=== PATIENT | female | born 1985 | race Caucasian/White ===

== ENCOUNTER 2018-10-21 13:57 | Emergency (ER) | payer OTHER ==
[2018-10-21] MEDS: Sodium Chloride 0.9% 10 ML Syringe FLUSH PRN ×2 (15:01→16:52)
--- NOTE | 2018-10-21 15:51 | EDM.PDOC ---
ED HPI GENERAL MEDICAL PROBLEM - General Chief Complaint: Chest Pain Stated Complaint: CHEST PAIN Time Seen by Provider: 10/21/18 14:30 Source of Information: Reports: Patient History Limitations: Reports: No Limitations - History of Present Illness INITIAL COMMENTS - FREE TEXT/NARRATIVE: 33-year-old female presents for evaluation and treatment of chest pain. Patient reports that she has had chest pain on and off for the last 3 days. States she began concerned today when it has been constant. She describes as pleuritic in nature. She reports a little bit of a cough. She also reports diaphoresis, lightheadedness, nausea, vomiting, chills and a decreased appetite. She reports some back pain. She denies any syncope or fevers. Has tried ibuprofen but the pain seems to persist. She reports that she has been around ill contacts with a cough. She denies any long car rides or airplane rides. No leg pain or swelling. she is healthy and is not on any medications. No contraceptives. Duration: Day(s): (3) Chest Pain Score (Numeric/FACES): 2 - Related Data Allergies Allergy/AdvReac Type Severity Reaction Status Date / Time No Known Allergies Allergy Verified 10/21/18 14:17 Home Meds: Home Meds Omeprazole 20 mg PO DAILY #30 tablet. 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: Neurological History: Reports: None Psychiatric History: Reports: None Endocrine/Metabolic History: Reports: Obesity/BMI 30+ Hematologic History: Reports: None Immunologic History: Reports: None Oncologic (Cancer) History: Reports: None Dermatologic History: Reports: None - Infectious Disease History Infectious Disease History: Reports: None - Past Surgical History Head Surgeries/Procedures: Reports: None HEENT Surgical History: Reports: Oral Surgery Respiratory Surgical History: Reports: None Musculoskeletal Surgical History: Reports: Ganglion Cyst Social & Family History - Family History Family Medical History: Noncontributory Cardiac: Reports: CAD, Pacemaker Endocrine/Metabolic: Reports: Diabetes, type II Oncologic: Reports: Pancreatic - Tobacco Use Smoking Status *Q: Current Every Day Smoker Years of Tobacco use: 30 Packs/Tins Daily: 0.5 - Caffeine Use Caffeine Use: Reports: Soda, Tea - Recreational Drug Use Recreational Drug Use: No ED ROS GENERAL - Review of Systems Review Of Systems: See Below Constitutional: Reports: Chills, Diaphoresis, Decreased Appetite. Denies: Fever Respiratory: Reports: Pleuritic Chest Pain, Cough Cardiovascular: Reports: Chest Pain. Denies: Syncope GI/Abdominal: Reports: Nausea, Vomiting Musculoskeletal: Reports: Back Pain. Denies: Leg Pain Neurological: Denies: Syncope ED EXAM, GENERAL - Physical Exam Exam: See Below Exam Limited By: No Limitations General Appearance: Alert, WD/WN, No Apparent Distress, Obese Eye Exam: Bilateral Eye: Normal Inspection Ears: Normal External Exam Nose: Normal Inspection Throat/Mouth: Normal Inspection, Normal Lips, Normal Voice, No Airway Compromise Respiratory/Chest: No Respiratory Distress, Lungs Clear, Normal Breath Sounds Cardiovascular: Normal Peripheral Pulses, Regular Rate, Rhythm, No Murmur GI/Abdominal: Normal Bowel Sounds, Soft, Non-Tender Back Exam: Normal Inspection Extremities: Normal Inspection, No Pedal Edema Neurological: Alert, Oriented, Normal Cognition Psychiatric: Normal Affect, Normal Mood Skin Exam: Warm, Dry, Normal Color EKG INTERPRETATION EKG Date: 10/21/18 Time: 14:57 Rhythm: NSR Rate (Beats/Min): 93 [place]: Normal P-Wave: Present QRS: Normal ST-T: Normal QT: Normal EKG Interpretation Comments: NSR at 93 bpm. Initial poor "R" wave progression. Reviewed by myself and Dr. Ashford. Course - Vital Signs Last Recorded V/S: Last Vital Signs Temp 97.9 F 10/21/18 14:20 Pulse 101 H 10/21/18 14:20 Resp 18 10/21/18 14:20 BP 132/96 H 10/21/18 14:20 Pulse Ox 99 10/21/18 14:20 - Orders/Labs/Meds Labs: Laboratory Tests 10/21/18 10/21/18 10/21/18 Range/Units 14:56 14:56 14:56 WBC 8.11 (3.98-10.04) K/mm3 RBC 4.40 (3.98-5.22) M/mm3 Hgb 11.2 (11.2-15.7) gm/L Hct 35.7 (34.1-44.9) % MCV 81.1 D (79.4-94.8) fl MCH 25.5 L (25.6-32.2) pg MCHC 31.4 L (32.2-35.5) g/dl RDW Std Deviation 48.9 H (36.4-46.3) fL Plt Count 210 (182-369) K/mm3 MPV 10.8 (9.4-12.3) fl Neut % (Auto) 71.9 H (34.0-71.1) % Lymph % (Auto) 19.9 (19.3-51.7) % [place] % (Auto) 5.5 (4.7-12.5) % Eos % (Auto) 1.6 (0.7-5.8) Baso % (Auto) 0.7 (0.1-1.2) % Neut # (Auto) 5.83 (1.56-6.13) K/mm3 Lymph # (Auto) 1.61 (1.18-3.74) K/mm3 [place] # (Auto) 0.45 H (0.24-0.36) K/mm3 Eos # (Auto) 0.13 (0.04-0.36) K/mm3 Baso # (Auto) 0.06 (0.01-0.08) K/mm3 D-Dimer, Quantitative 0.78 H (0.19-0.50) mg/L Sodium 137 (136-145) mEq/L Potassium 3.8 (3.5-5.1) mEq/L Chloride 104 (98-107) mEq/L Carbon Dioxide 23 (21-32) mEq/L Anion Gap 13.8 (5-15) BUN 11 (7-18) mg/dL Creatinine 0.7 (0.55-1.02) mg/dL Est Cr Clr Drug Dosing 105.01 mL/min Estimated GFR (MDRD) > 60 (>60) mL/min BUN/Creatinine Ratio 15.7 (14-18) Glucose 101 (74-106) mg/dL Calcium 9.2 (8.5-10.1) mg/dL Total Bilirubin 0.2 (0.2-1.0) mg/dL AST 41 H (15-37) U/L ALT 47 (14-59) U/L Alkaline Phosphatase 89 (46-116) U/L Troponin I < 0.017 (0.00-0.056) ng/mL C-Reactive Protein 2.8 H* (<1.0) mg/dL Total Protein 7.4 (6.4-8.2) g/dl Albumin 3.3 L (3.4-5.0) g/dl Globulin 4.1 gm/dL Albumin/Globulin Ratio 0.8 L (1-2) Lipase 265 (73-393) U/L Meds: Medications Discontinued Medications Generic Name Dose Route Start Last Admin Trade Name Freq PRN Reason Stop Dose Admin Al Hydroxide/Mg Hydroxide 30 0 ml 10/21/18 17:30 10/21/18 17:59 ml/ Lidocaine HCl 15 ml PO 10/21/18 17:31 45 ml ONETIME ONE Administration Hydromorphone HCl 0.5 mg 10/21/18 16:15 10/21/18 16:23 Dilaudid IVPUSH 10/21/18 16:16 0.5 mg ONETIME ONE Administration Iopamidol 100 ml 10/21/18 16:32 10/21/18 16:52 Isovue-370 (76%) IVPUSH 10/21/18 16:33 100 ml ONETIME ONE Administration Ondansetron HCl 4 mg 10/21/18 16:15 10/21/18 16:22 Zofran IVPUSH 10/21/18 16:16 4 mg ONETIME ONE Administration Sodium Chloride 10 ml 10/21/18 14:42 10/21/18 16:52 Saline Flush FLUSH 10 ml ASDIRECTED PRN Administration Keep Vein Open - Radiology Interpretation Free Text/Narrative:: chest xray shows no acute intrathoracic process. CT PE study is negative for PE - Re-Assessments/Exams Free Text/Narrative Re-Assessment/Exam: 10/21/18 17:37 Reviewed the labs, ekg and imaging with the patient. Will start treatment for GERD. Recommend follow-up in the clinic. Discharge instructions as documented. 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 Do not drive or operate machinery within 10 hours of taking prescription narcotic pain medication. take the omeprazole 1 tab PO daily follow-up with family medicine. Recommend Amira Thompson at the [facility], [place], operated by [facility] call [phone] to schedule with her. May take OTC tums or Rolaids for additional pain relief. Please return to the ER should your symptoms change or worsen.
[2018-10-21] MEDS ORDERED: Ondansetron 4 MG/2 ML SDV IVPUSH ONE (16:15)
[2018-10-21] MEDS ORDERED: HYDROmorphone 0.5 MG/0.5 ML Syringe IVPUSH ONE (16:15)
[2018-10-21] MEDS ORDERED: Iopamidol 755 Mg/ML 100 ML Bottle IVPUSH ONE (16:32)
[2018-10-21] MEDS ORDERED: Alum Hydrox/Mag Hydrox/Simeth 30 ML, Lidocaine 2% 15 ML PO ONE ×2 (17:30)
--- NOTE | 2018-10-22 09:28 | CR ---
Chest: Two views of the chest were obtained. Comparison: No prior chest x-ray. Heart size and mediastinum are normal. Lungs are clear. Bony structures are unremarkable. Impression: 1. Nothing acute is seen on two-view chest x-ray. Diagnostic code #1
--- NOTE | 2018-10-22 09:28 | CT ---
CT chest Technique: Multiple axial sections through the chest were obtained. Intravenous contrast was utilized. Study performed utilizing pulmonary angiogram protocol. Findings: Pulmonary arteries are not optimally opacified. No filling defects are seen within the main or segmental branches. Smaller subsegmental pulmonary emboli could be missed. Mediastinum shows several small lymph nodes which are felt to be within normal limits. No hilar abnormalities are seen. No pericardial thickening is seen. Fatty infiltration is seen within the liver. Small nonobstructing calculi are seen within both kidneys. Lungs are clear with no acute parenchymal change. No pleural effusions are seen. Impression: 1. Less than optimal opacification of the pulmonary arteries. No filling defects are seen to indicate pulmonary emboli within the main or segmental branches. Smaller smaller subsegmental pulmonary emboli could be missed. 2. Small nonobstructing calculi are seen within both kidneys. 3. Fatty infiltration within the liver. Diagnostic code #3 I agree with preliminary report from [facility], finalized on 10/21/18, 6:02 PM Central Time
== END 2018-10-21 18:13 | disposition home or self-care (01) ==
LOC: JD.ED 13:57
DX: K21.9 Gastro-esophageal reflux disease without esophagitis (principal); E66.9 Obesity, unspecified; F17.210 Nicotine dependence, cigarettes, uncomplicated; Z98.890 Other specified postprocedural states
CPT/HCPCS: 36415; 71046; 71275; 80053; 83690; 84484; 85025; 85379; 86140; 93005; 96374; 96375; 99285; A9270; J1170; J2405; Q9967; 93010; 99283

== ENCOUNTER 2020-08-18 20:11 | Emergency (ER) | payer OTHER, MEDICAID ==
[2020-08-18] MEDS ORDERED: HYDROmorphone 1 MG/ML Syringe IM ONE (20:37)
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
--- NOTE | 2020-08-19 07:31 | CR ---
Right tibia and fibula: AP and lateral views of the right tibia and fibula were obtained. Comparison: Prior ankle study on the same day, no previous studies available. Lateral malleolus fracture is seen. Adjacent soft tissue swelling is noted. No proximal bony abnormality is appreciated. Impression: 1. Lateral malleolus fracture with soft tissue swelling. 2. No additional abnormality is seen on right tibia and fibula exam. Diagnostic code #3
--- NOTE | 2020-08-19 07:32 | CR ---
Right ankle: 4 views of the right ankle were obtained. Comparison: No prior ankle study is available. Distal fibular fracture is seen involving the lateral malleolus. Alignment is close to anatomic. Soft tissue swelling is noted. Ankle mortise is symmetric. No additional fracture or dislocation is seen. Plantar spur is noted. Spur is also noted at the posterior calcaneus at the attachment of the Achilles tendon. Impression: 1. Nondisplaced lateral malleolus fracture with soft tissue swelling. 2. Calcaneal spurs. Diagnostic code #3
== END 2020-08-18 21:53 | disposition home or self-care (01) ==
LOC: JD.ED 20:11
DX: S82.831A Other fracture of upper and lower end of right fibula, initial encounter for closed fracture (principal); S50.311A Abrasion of right elbow, initial encounter; S80.211A Abrasion, right knee, initial encounter; K21.9 Gastro-esophageal reflux disease without esophagitis; E66.9 Obesity, unspecified; Z68.41 Body mass index [BMI] 40.0-44.9, adult; Z79.899 Other long term (current) drug therapy; V69.9XXA Occupant (driver) (passenger) of heavy transport vehicle injured in unspecified traffic accident, initial encounter
CPT/HCPCS: 73590; 73610; 96372; 99283; J1170

== ENCOUNTER 2020-12-09 11:20 | Day surgery (SDC) | payer MEDICAID ==
[~2020-12-09 11:20] MED LIST: Lactated Ringers 1,000 ML IV SCH; Lidocaine 1%/Sod Bicarbonate in NS 8.4% 1 ML Syringe IDERM PRN; Sodium Chloride 0.9% 10 ML Syringe FLUSH PRN
[2020-12-09] MEDS ORDERED: Sodium Chloride 0.9% 10 ML Syringe FLUSH PRN (12:32)
[2020-12-09] MEDS ORDERED: Lidocaine 1%/Sod Bicarbonate in NS 8.4% 1 ML Syringe IDERM PRN (12:32)
[2020-12-09] MEDS ORDERED: Lactated Ringers 1,000 ML IV SCH (12:45)
[2020-12-09] MEDS ORDERED: Bupivacaine 0.25% 10 ML SDV ONE (13:00)
[2020-12-09] MEDS ORDERED: Lidocaine 1% 30 ML SDV ONE (13:00)
--- NOTE | 2020-12-09 13:13 | PCM.PREANE ---
Preanesthetic Assessment - Procedure Proposed Procedure: right carpal tunnel release - Anesthesia/Transfusion/Family Hx Anesthesia History: Prior Anesthesia Without Reaction Type of Anesthesia Reaction: Other (see below) (occ cough) Family History of Anesthesia Reaction: No Transfusion History: No Prior Transfusion(s) - Review of Systems General: No Symptoms Pulmonary: No Symptoms, Other (had bronchitis- over it now- a week ago) Cardiovascular: No Symptoms Gastrointestinal: No Symptoms Neurological: No Symptoms Other: Reports: Thyroid Problems - Physical Assessment NPO Status Date: 12/09/20 NPO Status Time: 00:30 Vital Signs: Last Vital Signs Temp 98.7 F 12/09/20 12:05 Pulse 110 H 12/09/20 12:05 Resp 16 12/09/20 12:05 BP 136/93 H 12/09/20 12:05 Pulse Ox 98 12/09/20 12:05 Height: 5 ft 5 in Weight: 123.831 kg ASA Class: 3 Mental Status: Alert & Oriented x3 Airway Class: Mallampati = 1 Dentition: Reports: Dentures (top) Thyro-Mental Finger Breadths: 3 Mouth Opening Finger Breadths: 3 ROM/Head Extension: Full Lungs: Clear to Auscultation, Normal Respiratory Effort Cardiovascular: Regular Rate, Regular Rhythm - Lab Values: Laboratory Last Values Urine HCG, Qual Negative (NEGATIVE) 12/09/20 11:57 - Allergies Allergies/Adverse Reactions: Allergies Allergy/AdvReac Type Severity Reaction Status Date / Time No Known Allergies Allergy Verified 12/09/20 12:31 - Blood Blood Available: No - Acknowledgements Anesthesia Type Planned: MAC Pt an Appropriate Candidate for the Planned Anesthesia: Yes Alternatives and Risks of Anesthesia Discussed w Pt/Guardian: Yes Pt/Guardian Understands and Agrees with Anesthesia Plan: Yes PreAnesthesia Questionnaire HEENT History: Reports: Other (See Below) Other HEENT History: dentures Cardiovascular History: Reports: None Respiratory History: Reports: Asthma (last used inhaler a week and half ago), Bronchitis, Recurrent, COPD Gastrointestinal History: Reports: GERD Genitourinary History: Reports: Renal Calculus 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: Musculoskeletal History: Reports: Other (See Below) Other Musculoskeletal History: ganglion cyst left wrist Neurological History: Reports: None Psychiatric History: Reports: None Endocrine/Metabolic History: Reports: Hypothyroidism, Obesity/BMI 30+ Hematologic History: Reports: None Immunologic History: Reports: None Oncologic (Cancer) History: Reports: None Dermatologic History: Reports: None - Infectious Disease History Infectious Disease History: Reports: Novel Coronavirus - Past Surgical History Head Surgeries/Procedures: Reports: None HEENT Surgical History: Reports: Oral Surgery Cardiovascular Surgical History: Reports: None Respiratory Surgical History: Reports: None GI Surgical History: Reports: Hernia Repair/Other Female Surgical History: Reports: Lithotripsy/ESWL Endocrine Surgical History: Reports: None Neurological Surgical History: Reports: None Musculoskeletal Surgical History: Reports: Carpal Tunnel, Ganglion Cyst, Other (See Below) Other Musculoskeletal Surgeries/Procedures:: carpal tunnel release Oncologic Surgical History: Reports: None Dermatological Surgical History: Reports: None - SUBSTANCE USE Tobacco Use Status *Q: Current Every Day Tobacco User Tobacco Use Within Last Twelve Months: Cigarettes Second Hand Smoke Exposure: Yes Days Per Week of Alcohol Use: 2 Recreational Drug Use History: No - HOME MEDS Home Medications: Home Meds Omeprazole 20 mg PO DAILY #30 tablet. 10/21/18 [Rx] Albuterol Sulfate [Albuterol Sulfate Hfa] 1 - 2 puff INH Q4H PRN 12/08/20 [History] Ibuprofen 600 mg PO TID PRN #20 tablet 12/08/20 [Rx] Levothyroxine 25 mcg PO DAILY 12/08/20 [History] - CURRENT (IN HOUSE) MEDS Current Meds: Current Medications Lactated Ringer's (Ringers, Lactated) 1,000 mls @ 125 mls/hr IV ASDIRECTED EMMA Stop: 12/09/20 23:00 Last Admin: 12/09/20 12:10 Dose: 125 mls/hr Documented by: Lidocaine/Sodium Bicarbonate (Lidocaine 1%/Sod Bicarbonate In Ns 8.4% 1 Ml Syringe) 0.25 ml IDERM ONETIME PRN PRN Reason: Prior to IV Start Stop: 12/09/20 18:00 Last Admin: 12/09/20 12:10 Dose: 0.25 ml Documented by: Sodium Chloride (Sodium Chloride 0.9% 10 Ml Syringe) 10 ml FLUSH ASDIRECTED PRN PRN Reason: Keep Vein Open Stop: 12/09/20 23:00 Discontinued Medications Bupivacaine HCl (Bupivacaine 0.25% 10 Ml Sdv) Confirm Administered Dose 10 ml .ROUTE .STK-MED ONE Stop: 12/09/20 13:01 Lactated Ringer's (Ringers, Lactated) 1,000 mls @ 125 mls/hr IV ASDIRECTED EMMA Stop: 11/17/20 23:00 Lidocaine HCl (Lidocaine 1% 30 Ml Sdv) Confirm Administered Dose 30 ml .ROUTE .STK-MED ONE Stop: 12/09/20 13:01 Lidocaine/Sodium Bicarbonate (Lidocaine 1%/Sod Bicarbonate In Ns 8.4% 1 Ml Syringe) 0.25 ml IDERM ONETIME PRN PRN Reason: Prior to IV Start Stop: 11/17/20 18:00 Sodium Chloride (Sodium Chloride 0.9% 10 Ml Syringe) 10 ml FLUSH ASDIRECTED PRN PRN Reason: Keep Vein Open Stop: 11/17/20 18:00
[2020-12-09] MEDS ORDERED: Lidocaine 1% 4 ML ONE (13:17)
[2020-12-09] MEDS ORDERED: Propofol 200 MG/20 ML SDV ONE ×2 (13:17→13:39)
[2020-12-09] MEDS ORDERED: fentaNYL 100 MCG/2 ML SDV ONE (13:17)
[2020-12-09] MEDS ORDERED: ceFAZolin 1 GM Vial ONE ×2 (13:18→13:19)
[2020-12-09] MEDS ORDERED: Midazolam 1 MG/ML 2 ML SDV ONE (13:21)
[2020-12-09] MEDS ORDERED: Ketorolac 30 MG/ML SDV ONE (13:49)
--- NOTE | 2020-12-09 14:02 | PCM48HPAN ---
Post Anesthesia Note - EVALUATION WITHIN 48HRS OF ANESTHETIC Vital Signs in Normal Range: Yes Patient Participated in Evaluation: Yes Respiratory Function Stable: Yes Airway Patent: Yes Cardiovascular Function Stable: Yes Hydration Status Stable: Yes Pain Control Satisfactory: Yes Nausea and Vomiting Control Satisfactory: Yes Mental Status Recovered: Yes Vital Signs: Last Vital Signs Temp 98.7 F 12/09/20 12:05 Pulse 110 H 12/09/20 12:05 Resp 16 12/09/20 12:05 BP 136/93 H 12/09/20 12:05 Pulse Ox 98 12/09/20 12:05 1357 115/77 99 18 98.4 96%
--- NOTE | 2020-12-20 17:55 | PCM.OPNOTE ---
- General Post-Op/Procedure Note Date of Surgery/Procedure: 12/09/20 Operative Procedure(s): right carpal tunnel release Pre Op Diagnosis: right median nerve compression neuropathy Post-Op Diagnosis: Same Anesthesia Technique: Local, MAC Primary Surgeon: Tera Morales Anesthesia Provider: Neelam Tellez Barrel Header: Eleanor Quiroga EBL in mLs: 5 Complications: None Condition: Good
--- NOTE | 2020-12-20 18:31 | OR ---
DATE OF OPERATION: 12/09/2020 SURGEON: Tera Morales MD OPERATION PERFORMED: Right carpal tunnel release. PREOPERATIVE DIAGNOSIS: Right median nerve compression neuropathy. POSTOPERATIVE DIAGNOSIS: Right median nerve compression neuropathy. ANESTHESIA: Local MAC. ANESTHESIA PROVIDER: Neelam Tellez CRNA [employer] TEAM LEADER: Eleanor Quiroga PA-C ESTIMATED BLOOD LOSS: Less than 5 mL. COMPLICATIONS: None. CONDITION: Stable. DESCRIPTION OF PROCEDURE: The patient was identified in the preop holding area. Proper site was marked and identified by the surgeon. The patient was taken back to the operating theater where after adequate anesthesia, the patient's right upper extremity was sterilely prepped and draped in the usual sterile fashion. OR time-out was performed. The patient did not receive antibiotics and it is not indicated for soft tissue hand procedure. At this time, the right upper extremity was exsanguinated and an Esmarch was used as a tourniquet on the forearm. At this time, using 1% lidocaine without epinephrine and 0.25% Marcaine without epinephrine, the palmar cutaneous branch of the median nerve was anesthetized and then the incisional site was anesthetized using Barnes cardinal line and ulnar border of the fourth digit as reference. Once this had set up, an incision was made. Blunt dissection was taken down to the palmar cutaneous fascia. Palmar cutaneous fascia was incised with a [place] blade. At this time, the transverse carpal ligament was identified. A small rent was made in the transverse carpal ligament with a [place] blade under direct visualization. Resection of the transverse carpal ligament was done distally using tenotomy scissors making sure to stop short of the palmar arch. At this time, attention was turned proximally after it was found to be adequately released. Using the tenotomy scissors keeping the tips ulnar to protect the palmar cutaneous branch of the median nerve, the superficial forearm fascia as well as the transverse carpal ligament were resected proximally. It was found to be adequate release both proximally and distally. At this time, adequate saline was irrigated through the wound. 4-0 nylon sutures were used closure of the skin. The patient was placed in a sterile soft dressing and sent to PACU in stable condition. MMODAL /[id number]
== END 2020-12-09 14:27 | disposition home or self-care (01) ==
LOC: JD.SDS 11:20
PROVIDERS: ATTEND Orthopaedic Surgery
DX: G56.11 Other lesions of median nerve, right upper limb (principal); J44.9 Chronic obstructive pulmonary disease, unspecified; K21.9 Gastro-esophageal reflux disease without esophagitis; E03.9 Hypothyroidism, unspecified; F17.210 Nicotine dependence, cigarettes, uncomplicated; Z98.890 Other specified postprocedural states; Z79.899 Other long term (current) drug therapy
CPT/HCPCS: 64721; 81025; J0690; J1885; J2250; J2704; J3010; J3490; J7120; 01810

== ENCOUNTER 2024-10-14 21:10 | Emergency (ER) | payer MEDICAID ==
[2024-10-14] MEDS: Ketorolac 60 MG/2 ML SDV IM ONE (22:55)
[2024-10-14] MEDS: Acetaminophen/HYDROcodone 325-5 MG Tab PO ONE (22:56)
== END 2024-10-15 00:30 | disposition home or self-care (01) ==
LOC: JD.ED 21:10
DX: S49.92XA Unspecified injury of left shoulder and upper arm, initial encounter (principal); E03.9 Hypothyroidism, unspecified; K21.9 Gastro-esophageal reflux disease without esophagitis; F17.210 Nicotine dependence, cigarettes, uncomplicated; J44.89 Other specified chronic obstructive pulmonary disease; Z79.899 Other long term (current) drug therapy; Z79.890 Hormone replacement therapy; Z86.16 Personal history of COVID-19; W50.0XXA Accidental hit or strike by another person, initial encounter; Y93.89 Activity, other specified
CPT/HCPCS: 73030; 73200; 96372; 99284; A9270; J1171; J1885